=== PATIENT | female | born 1980 | race Caucasian/White ===

== ENCOUNTER 2017-03-20 11:35 | Day surgery (SDC) | payer OTHER ==
[2017-03-20] VITALS (13 sets, daily range): BP systolic 117–134; BP diastolic 8–84; PULSE 67–110; RESP 14–18; O2SAT 95–100
[~2017-03-20] VITALS: Ht 157.5 cm; Wt 67.4 kg
[2017-03-20] MEDS: Lactated Ringer's 1,000 ML IV SCH ×2 (11:36→13:09)
[2017-03-20] MEDS ORDERED: Propofol 10,000 mCg/mL 20 mL Inj ONE (11:36)
[2017-03-20] MEDS ORDERED: Neostigmine 1 mg/mL 10 mL Inj ONE (11:36)
[2017-03-20] MEDS ORDERED: Glycopyrrolate 0.2 MG/ML 1mL Inj ONE (11:36)
[2017-03-20] MEDS ORDERED: Ondansetron 2 mg/mL 2 mL Inj ONE (11:36)
[2017-03-20] MEDS ORDERED: fentaNYL-PF 50 mCg/mL 2 mL Inj ONE (11:36)
[2017-03-20] MEDS ORDERED: Dexamethasone 4 mg/mL Inj ONE (11:36)
[2017-03-20] MEDS ORDERED: Lactated Ringer's 500 ML IV PRN (13:40)
[2017-03-20] MEDS ORDERED: EPHEDrine Sulfate 50 mg/mL Inj IVPUSH PRN (13:40)
[2017-03-20] MEDS ORDERED: Labetalol 5 mg/mL 4 mL Inj IV PRN (13:40)
[2017-03-20] MEDS ORDERED: Phenylephrine 10,000 mCg/mL Inj IVPUSH PRN (13:40)
[2017-03-20] MEDS ORDERED: Lactated Ringer's 1,000 ML IV SCH (13:40)
[2017-03-20] MEDS ORDERED: MetoCLOpramide 5 mg/mL 2 mL Inj IVPUSH PRN (13:40)
[2017-03-20] MEDS ORDERED: Ondansetron 2 mg/mL 2 mL Inj IVPUSH PRN ×2 (13:40→14:25)
[2017-03-20] MEDS ORDERED: Atropine 0.4 mg/mL Inj IVPUSH PRN (13:40)
--- NOTE | 2017-03-20 13:40 | PCM.HPANE ---
Patient Data Surgeon Admitting Provider: Attending Provider:Neena Leiva MD Primary Care Physician:Sofia Chandler MD Other Provider:Nicole Abreu Anesthesia Reason for Visit Encounter For Oth General Cnsl And Advice On Contr Ht/WT & BMI Height (Feet): 5 Height (Inches): 2.00 Weight (Kilograms): 67.4 Body Mass Index 27.00 Allergies Coded Allergies: No Known Allergies (Verified , 04/06/07) Past Anesthesia History Anesthesia History: Denies:: Abnormal Airway, Anesthesia Reactions, Difficult Intubation, Fam Anesthesia Reaction Diabetes History Hx Diabetes?: No MRSA MRSA: No Medications Hypertension Medication: No Home Meds Incl Beta Geraldo: No No Active Prescriptions or Reported Meds History History of ENT Problems?: No HEENT History: Denies:: Abnormal Airway Cataracts Difficult Intubation Dysphagia Glaucoma Hearing Problem Sinus Problem TMJ Denture Type: None Teeth Condition: Within Normal Limits Hx of Heart Problems?: No Cardiovascular History: Denies:: AICD Abdominal Aortic Aneurism Atrial Fibrillation Chest Pain Congestive Heart Failure Edema Heart Murmur Hypertension Irregular Heartbeat Pacemaker Peripheral Vascular Rheumatic Fever Thrombophlebitis Valvular Heart Disease Hx of Respiratory Problem?: Yes (tobacco use) Respiratory History: Denies:: Asthma COPD Emphysema Oxygen Administration Pneumonia Tuberculosis Use of C-PAP Machine Use of Inhalers / NEBS Hx Neurologic Problems?: No Neurological History: Denies:: CVA Dementia Dizziness Headaches Multiple Sclerosis Parkinson's Disease Seizures TIA Hx of GI Problems?: No Hx of Problems?: No Genitourinary History: Denies:: Kidney Stones Urinary Tract Infection Female Hx: Denies:: Currently Problems with Breasts? Skin History: Denies:: History Skin Disorders? Pressure Ulcers Hx Musculoskeletal Problems?: Yes Musculoskeletal History: Positive for:: Musculoskeletal Trauma (recent rib fx - january 2017 ) Denies:: Back Injury (occ back pain) Fibromyalgia Joint Replacement Osteoarthritis Hx of Psycho/Social Problems?: No Psycho Social History: Denies:: Anxiety Hx Depression Hx Surgeries?: Yes (dx laparoscopy, D+C) Hx Any Other Health Problems?: Yes Other History: Denies:: Cancer Thyroid Disease History Blood Transfusions: Positive for:: Accept Blood Products? Denies:: Blood Transfusions Hx Diabetes: No Hx Alcohol Use: YesAlcoholic Drinks Per Day: once monthly or soHx Substance Use: Yes (marijuana - inhaled daily) Smoking Status: Current Every Day Smoker Have You Smoked inLast 12 mo: Yes (one ppd ) Stop/Bang S-Snoring: Do You Snore Loudly: No T-Tired: feel tired, fatigued: No O-Obsered: Observed not breath: No P-Blood Pressure: treated: No B- Body Mass Index > 35 kg/m2: No A- Age over 50: No N- Neck Large Circumference: No G- Gender Male: No BENNY Total Score: 0 Risk Assessment Category Category 1A: Patient has history of documented sleep apnea, and HAS NOT received any narcotic, sedative or anesthesia administration during this stay. Category 1B: Patient has history of documented sleep apnea, and HAS received any narcotic , sedative or anesthesia administration during this stay Category 2: Patient has SUSPECTED Obstructive Sleep Apnea, and HAS received any narcotic , sedative or anesthesia administration during this stay. Category 3: Patient has SUSPECTED Obstructive Sleep Apnea and HAS NOT received narcotic, sedative or anesthesia administration during this stay. Category 4: Outpatient in Procedural Areas with known sleep apnea or who screen positive for High Risk via the STOP/BANG questionnaire. Exam Exam Vital Signs Vital Signs Date Time Temp Pulse Resp B/P Pulse Ox O2 Delivery O2 Flow Rate FiO2 03/20/17 11:56 36.2 90 18 129/83 98 Room Air General Appearance: Alert, Oriented X3 HEENT/AIRWAY: MP 2, Neck Movement (FROM) Lungs: Clear to Auscultation, Clear to Percussion Heart: Exam Unremarkable, Regular Rate/Rhythm Meds/Labs/Diagnostics Admission Meds Current Medications Lactated Ringer's (Lr) 1,000 ml @ 120 mls/hr [id number] IV Last administered on t 11:36; Start 03/20/17 at 05:00; Stop 03/20/17 at 13:19 Plan Impression Patient chart reviewed, patient interviewed and anesthestic plan with risks, benefits, and alternatives discussed, and informed consent obtained. ASA Physical Status: ASA2 Mod Systemic Disease Anesthetic Plan: GA Bene/Risks/Altern/Consents: Yes HP Complete Prior to Induction: Yes Arsen Rosario MD Mar 20, 2017 12:50
[2017-03-20] MEDS ORDERED: Bupivacaine-MPF 0.5% W/EPI 30 mL Inj INFILTRATE ONE (13:43)
[2017-03-20] MEDS ORDERED: oxyCODONE-Acetamin 5-325 mg Tablet PO PRN (14:25)
--- NOTE | 2017-03-20 14:33 | PCM.DIGYN ---
Surgical Discharge Instruction Dates of Hospitalization Date of Hospital Admission 03/20/17 Providers Admitting Physician: Primary Care Physician: Sofia Chandler MD Attending Physician: Neena Leiva MD Diagnosis at Time of Discharge Diagnosis at time of discharge s/p bilateral tubal ligation Post-operative diagnosis s/p bilateral tubal ligation Problems: Diet Discharge Diet: No restrictions Activity Discharge Activity-General: Try not to overdue, Be up and about, Balance rest and activity, No driving while taking narcotic Dressing and Incisional Care Hygiene: May shower, NO bathtub, hot tub or whirlpool Additional Instructions Discharge Instructions Please go to ER or call office if heavy vaginal bleeding, severe abdominal pain , foul smelling discharge, fever more than 100.4 Follow Up Plan Follow Up Plan 2 weeks post op Follow-up Provider (F9): Neena Leiva MD Follow-up appointment: Weeks (2) Call your provider for: Fever, Chills, Shortness of breath, Vomitting, Heavy vaginal bleeding, Increasing pain Neena Leiva MD Mar 20, 2017 14:33
[2017-03-20] MEDS: fentaNYL-PF 50 mCg/mL 2 mL Inj IVPUSH PRN ×2 (14:40→14:51)
--- NOTE | 2017-03-20 14:40 | PCM.ANEP1 ---
Post Anesthesia Phase 1 PACU Phase 1 Assessment Vital Signs Vital Signs Date Time Temp Pulse Resp B/P Pulse Ox O2 Delivery O2 Flow Rate FiO2 03/20/17 14:23 36.6 110 15 130/80 100 Simple Mask 8 03/20/17 11:56 36.2 90 18 129/83 98 Room Air Anesthetic Administered: GA Level of Alertness: Awake, talking REMY's with Equal Strength: Yes Pain: No Nausea or Vomiting: No Oxygen Delivery: Simple Mask Lungs: Clear to Auscultation, Clear to Percussion Complications: No Follow up Care: No Arsen Rosario MD Mar 20, 2017 14:40
[2017-03-20] MEDS: HYDROmorphone 1 mg/mL Inj IVPUSH PRN ×3 (15:01→15:21)
[2017-03-20] MEDS ORDERED: Lactated Ringer's 1,000 ML IV ONE (15:36)
--- NOTE | 2017-03-20 22:10 | DIS ---
[address] [address] DISCHARGE SUMMARY PATIENT: FREDY SALDANA : 1980 MR#: [id number] ADMIT: 03/20/2017 JOB ID: [id number] DIS: DATE OF SERVICE: 03/20/2017 HISTORY/HOSPITAL COURSE: This is a 36-year-old female, para 2. She came in today for a scheduled procedure of bilateral tubal ligation. The procedure was not complicated. The patient was transferred to recovery room. The plan is to discharge her home after patient's pain well controlled, able to ambulate, and voiding. Patient prescribed Motrin 600 mg every 6 hours p.r.n. for pain for 30 pills, no refills; Percocet 30 pills with no refills. Patient instructed that if there is heavy vaginal bleeding, severe abdominal pain, foul-smelling discharge, fever more than 100.4, she needs to go to the ER or call office for evaluation. She is instructed to follow up in two weeks after the procedure. MARIAM
--- NOTE | 2017-03-20 22:31 | OP ---
[address] [address] OPERATIVE REPORT PATIENT: FREDY SALDANA : 1980 MR#: [id number] ADMIT: 03/20/2017 JOB ID: [id number] DATE OF SURGERY: 03/20/2017 SURGEON: Neena Leiva MD. PREOPERATIVE DIAGNOSIS(ES): Desire for permanent sterilization. POSTOPERATIVE DIAGNOSIS(ES): Desire for permanent sterilization INDICATIONS: A 36-year-old female, para 2, desires for permanent sterilization, desires for laparoscopy, bilateral tubal ligation. The patient understood there is risk of infection, bleeding, injury to the organs around the uterus, tubes, ovaries including but not limited to, above organs and also bladder, ureters, major vessels, nerves and bowels. Informed consent signed. Patient also understood this is a permanent procedure and, on the other hand, not any control can be 100% guaranteed for preventing from getting . PROCEDURE: 1. Laparoscopy. 2. Bilateral tubal ligation with Filshie clips. DESCRIPTION OF PROCEDURE: Patient was transferred to the operating room after general anesthesia was noted to be adequate. She was placed in dorsal lithotomy position. She was prepared and draped in normal sterile fashion. 25 cc of urine drained. A speculum inserted to vagina to expose the cervix. The cervix was grasped by single-tooth tenaculum. Sylvia manipulator placed for manipulating of the uterus. At this time, attention was transferred to her abdomen. The Veress needle used to insert to inside her peritoneal cavity. After confirmation of appropriate insertion, CO2 gas was inserted to form pneumoperitoneum. At this time, the Veress needle was removed and a vertical incision about 11 mm placed. The 10 mm trocar was placed with direct visualization. After confirmed enter into the pneumoperitoneum, the whole pelvis and abdominal cavity was visualized and there was no abnormal finding. The uterus was normal size, bilateral tubes and ovaries had no abnormal finding. At this time, The Filshie clips were placed on the right fallopian tube at the proximal 1/3 position. After placement, it was examined and confirmed appropriate placement . The same procedure was done on the left-sided tube. After the placement, the pelvis was examined with good hemostasis. All instruments removed from the field. All instrument, laps, gauzes and needles counted correct twice. The EBL of the procedure was about 5 cc. Fluid in was about 1 L. Urine output 25 cc. The patient was transferred to recovery room in a stable condition. MARIAM
== END 2017-03-20 23:59 | disposition home or self-care (01) ==
LOC: SAS 11:35
PROVIDERS: ATTEND Obstetrics & Gynecology
DX: Z30.2 Encounter for sterilization (principal); M54.5 Low back pain; G89.29 Other chronic pain; F17.210 Nicotine dependence, cigarettes, uncomplicated; F12.90 Cannabis use, unspecified, uncomplicated; Z79.891 Long term (current) use of opiate analgesic
CPT/HCPCS: 58671; J1100; J1170; J1885; J2175; J2250; J2405; J2710; J3010; J7120